=== PATIENT | male | born 1970 | race Caucasian/White ===

== ENCOUNTER 2021-10-08 19:07 | Emergency (ER) | payer OTHER | END 2021-10-09 00:15 | disposition home or self-care (01) | LOC: ER1 19:07 | DX: S01.01XA Laceration without foreign body of scalp, initial encounter (principal); S20.212A Contusion of left front wall of thorax, initial encounter; V49.40XA Driver injured in collision with unspecified motor vehicles in traffic accident, initial encounter; Y92.410 Unspecified street and highway as the place of occurrence of the external cause | CPT/HCPCS: 12004; 70450; 71260; 72125; 99284; Q9967 ==